=== PATIENT | male | born 1985 | race Caucasian/White ===

== ENCOUNTER 2018-08-21 17:28 | Emergency (ER) | payer SELFPAY ==
[2018-08-21] MEDS: HYDROCODONE/APAP (10/325) TAB PO (18:36)
[2018-08-21] MEDS: DIAZEPAM 5 MG TAB PO (18:36)
[2018-08-21] MEDS: KETOROLAC 60 MG INJ IM (18:37)
== END 2018-08-21 19:52 | disposition home or self-care (01) ==
LOC: FTE 17:28
DX: S39.92XA Unspecified injury of lower back, initial encounter (principal); W11.XXXA Fall on and from ladder, initial encounter; Y92.89 Other specified places as the place of occurrence of the external cause
CPT/HCPCS: 72131; 96372; 99285-25